=== PATIENT | male | born 1960 | race Caucasian/White ===

== ENCOUNTER 2018-08-26 14:38 | Outpatient (REF) | payer BC, SELFPAY ==
[2018-08-26 21:20] LABS: Abs Immature Grans 0.02 k/cumm (0.0-0.09); Absolute Basophil Count 0.01 k/cumm (0.0-0.2); Absolute Monocyte Count 0.84 k/cumm (0.11-0.7); Absolute Neutrophil Count 4.37 k/cumm (1.2-6.7); Basophils % 0.1; Eosinophils % 1.4; HGB 15.5 g/dL (13.5-17.5); Immature Grans % 0.3; Lymphocytes % 26.2; Mean Corp. HGB Concentration 35.2 g/dL (32.0-36.0); Mean Corpuscular Hemoglobin 31.6 pg (27.0-33.0); Mean Corpuscular Volume 89.6 fL (80-95); Mean Platelet Volume 9.9 fL (8.0-11.0); Monocytes % 11.6; Neutrophils % 60.4; Platelet Count 348 x1000/uL (130-400); RBC 4.91 m/cumm (4.50-6.00); RBC Distribution Width 11.9 % (11.8-14.1); White Blood Cell Count 7.24 k/cumm (4.4-10.8)
[2018-08-26 21:29] LABS: ALT 21 U/L (12-78); AST 14 U/L (15-37); Albumin 3.7 g/dL (3.4-5.0); Alkaline Phosphatase 67 U/L (46-116); Anion Gap 10.7 mmol/L (3-11); BUN 20 mg/dL (7-18); Bilirubin, Total 0.4 mg/dL (0.2-1.0); CO2 25.3 mmol/L (21.0-32.0); CREATININE 0.86 mg/dL (0.70-1.30); Calcium 9.6 mg/dL (8.5-10.1); Chloride 103 mmol/L (98-107); Cholesterol 188 mg/dL (50-200); Glucose 96 mg/dL (70-100); HDL Cholesterol 41 mg/dL (40-60); LDL CHOLESTEROL 127 mg/dL (<100); Potassium 4.2 mmol/L (3.5-5.1); Sodium 139 mmol/L (136-145); Total Protein 6.9 g/dL (6.4-8.2); Triglyceride 153 mg/dL (30-150)
== END 2018-08-26 14:58 ==
LOC: NCHCN 14:38
PROVIDERS: PCP Internal Medicine; Visit Provider Family Medicine
DX: Z00.00 Encounter for general adult medical examination without abnormal findings (principal); R05 Cough; K21.9 Gastro-esophageal reflux disease without esophagitis
CPT/HCPCS: 80053; 80061; 83721; 85025

== ENCOUNTER 2022-10-26 09:40 | Outpatient (REF) | payer MEDICAID, SELFPAY ==
[2022-10-26 16:30] LABS: Anion Gap 7.5 mmol/L (3-11); BUN 16 mg/dL (7-18); CO2 24.5 mmol/L (21.0-32.0); CREATININE 0.9 mg/dL (0.70-1.30); Calcium 11.2 mg/dL (8.5-10.1); Calculated LDL 143 mg/dL (<100); Chloride 105 mmol/L (98-107); Cholesterol 227 mg/dL (<200); Estimated GFR 95.97 (mL/min/1.73m2); Glucose 107 mg/dL (74-106); HDL Cholesterol 61 mg/dL (40-60); Potassium 4.2 mmol/L (3.5-5.1); Sodium 137 mmol/L (136-145); Triglyceride 117 mg/dL (<150)
== END 2022-10-26 09:41 | disposition home or self-care (01) ==
LOC: NCHCN 09:40
PROVIDERS: PCP Internal Medicine; Visit Provider Family Medicine
DX: Z00.00 Encounter for general adult medical examination without abnormal findings (principal)
CPT/HCPCS: 80048; 80061

== ENCOUNTER 2022-11-15 14:54 | Outpatient (REF) | payer MEDICAID, SELFPAY ==
[2022-11-15 14:53] LABS: Anion Gap 9.5 mmol/L (3-11); BUN 16 mg/dL (7-18); CO2 23.5 mmol/L (21.0-32.0); CREATININE 0.9 mg/dL (0.70-1.30); Calcium 10.8 mg/dL (8.5-10.1); Chloride 104 mmol/L (98-107); Estimated GFR 95.97 (mL/min/1.73m2); Glucose 107 mg/dL (74-106); Potassium 4.4 mmol/L (3.5-5.1); Sodium 137 mmol/L (136-145)
[2022-11-15 14:59] LABS: Hemoglobin A1C 5.4 % (<5.7)
[2022-11-15 15:24] LABS: Vitamin D 25 Total 24.3 ng/mL (30-100)
[2022-11-16 20:19] LABS: PSA, Screening 2.1 ng/mL (<=4.5); Parathyroid Hormone,Intact 77 pg/mL (19-88)
== END 2022-11-15 14:55 | disposition home or self-care (01) ==
LOC: NCHCN 14:54
PROVIDERS: PCP Internal Medicine; Visit Provider Family Medicine
DX: E83.52 Hypercalcemia (principal); Z13.1 Encounter for screening for diabetes mellitus; Z12.5 Encounter for screening for malignant neoplasm of prostate; Z00.00 Encounter for general adult medical examination without abnormal findings
CPT/HCPCS: 80048; 82306; 84153; 83036; 83970

== ENCOUNTER 2023-02-11 15:21 | Outpatient (REF) | payer MEDICAID, SELFPAY ==
[2023-02-11 15:16] LABS: Anion Gap 9.1 mmol/L (3-11); BUN 15 mg/dL (7-18); CO2 24.9 mmol/L (21.0-32.0); Calcium 10.3 mg/dL (8.5-10.1); Chloride 105 mmol/L (98-107); Estimated GFR 84.57 (mL/min/1.73m2); Glucose 144 mg/dL (74-106); Potassium 4.2 mmol/L (3.5-5.1); Sodium 139 mmol/L (136-145)
[2023-02-11 15:40] LABS: Vitamin D 25 Total 46.5 ng/mL (30-100)
== END 2023-02-11 15:22 | disposition home or self-care (01) ==
LOC: NCHCN 15:21
PROVIDERS: PCP Internal Medicine; Visit Provider Family Medicine
DX: E83.52 Hypercalcemia (principal)
CPT/HCPCS: 80048; 82306

== ENCOUNTER 2023-11-01 11:41 | Outpatient (REF) | payer MEDICAID, SELFPAY ==
[2023-11-01 14:56] LABS: Anion Gap 5.2 mmol/L (3-11); BUN 18 mg/dL (7-18); CO2 27.8 mmol/L (21.0-32.0); CREATININE 0.9 mg/dL (0.70-1.30); Calcium 11.1 mg/dL (8.5-10.1); Calculated LDL 121 mg/dL (<100); Chloride 105 mmol/L (98-107); Cholesterol 212 mg/dL (<200); Estimated GFR 95.37 (mL/min/1.73m2); Glucose 106 mg/dL (74-106); HDL Cholesterol 63 mg/dL (40-60); Potassium 4.5 mmol/L (3.5-5.1); Sodium 138 mmol/L (136-145); Triglyceride 142 mg/dL (<150)
[2023-11-01 15:20] LABS: Vitamin D 25 Total 64.6 ng/mL (30-100)
[2023-11-01 23:12] LABS: PSA, Screening 2.3 ng/mL (<=4.5)
== END 2023-11-01 11:42 | disposition home or self-care (01) ==
LOC: NCHCN 11:41
PROVIDERS: PCP Internal Medicine; Visit Provider Family Medicine
DX: E78.5 Hyperlipidemia, unspecified (principal); E55.9 Vitamin D deficiency, unspecified; E83.52 Hypercalcemia; Z12.5 Encounter for screening for malignant neoplasm of prostate
CPT/HCPCS: 80048; 80061; 82306; 84153

== ENCOUNTER 2024-09-16 13:54 | Outpatient (CLI) | payer MEDICAID, SELFPAY ==
[2024-09-16 13:07] LABS: Calcium 8.9 mg/dL (8.5-10.1); TSH 2.71 uIU/mL (0.36-3.74)
[2024-09-16 22:15] LABS: Parathyroid Hormone,Intact 67.2 pg/mL (19.0-88.0)
== END 2024-09-16 13:55 | disposition home or self-care (01) ==
LOC: LBO 13:54
PROVIDERS: PCP Internal Medicine; Visit Provider Surgery
DX: E21.0 Primary hyperparathyroidism (principal)
CPT/HCPCS: 36415; 82310; 83970; 84443